=== PATIENT | female | born 1965 | race Caucasian/White ===

== ENCOUNTER 2018-07-15 13:51 | Inpatient (IN) | payer MEDICAID, OTHER ==
[~2018-07-15] VITALS: Ht 167.6 cm; Wt 149.4 kg
[~2018-07-15 13:51] MED LIST: FURO20TA3 PO; NIFE20CA PO; POTA20TA89 PO; SULF-169 PO
--- NOTE | 2018-07-15 14:38 | NUR ---
FIRST CONTACT WITH PT: ED MD at bedside. Per pt, "Starting last night I could feel my blood pressure was super high. I could feel my heart beat all the way to my toes. For a few months I have had this swelling on my right lower leg." Pt conneted to personnel monitor, SPO2% monitor, and NIBP. NADN. Spouse at bedside. Pt denies n/v/d, sob, cp, or trauma. Pt denies trauma to lower extremity. Per pt, "I have been having pain in my left shoulder." All safety measures in place. Call light within reach.
[2018-07-15 14:45] LABS: BASOPHILS # (AUTO) 0.05 x10^3/uL (0-0.1); BASOPHILS % (AUTO) 1 % (0-1); EOSINOPHILS # (AUTO) 0.12 x10^3/uL (0-0.4); EOSINOPHILS % (AUTO) 1 % (1-7); LYMPHOCYTES # (AUTO) 2.08 x10^3/uL (1-3.4); LYMPHOCYTES % (AUTO) 21 % (22-44); MD NO; MEAN CORPUSCULAR HEMOGLOBIN 33.1 pg (27.0-34.8); MEAN CORPUSCULAR HGB CONC 34.3 g/dL (32.4-35.8); MEAN CORPUSCULAR VOLUME 96.6 fL (80-100); MEAN PLATELET VOLUME 8.3 fL (7.4-10.4); MONOCYTES # (AUTO) 0.31 x10^3/uL (0.2-0.8); MONOCYTES % (AUTO) 3 % (2-9); NEUTROPHILS # (AUTO) 7.46 x10^3/uL (1.8-6.8); NEUTROPHILS % (AUTO) 75 % (42-75); PLATELET COUNT 285 x10^3/uL (130-400); RED BLOOD COUNT 5.06 x10^6/uL (3.82-5.3); RED CELL DISTRIBUTION WIDTH 13.3 % (9.6-15.2)
[2018-07-15 14:54] LABS: ALBUMIN 3.8 g/dL (3.4-5.0); ANION GAP 6 mmol/L (5-15); CALCIUM 8.9 mg/dL (8.5-10.1); CHLORIDE 106 mmol/L (98-107)
[2018-07-15] MEDS ORDERED: ASPIRIN 325 MG TABLET ONE (14:57)
[2018-07-15 14:59] LABS: CREATININE 0.87 mg/dL (0.55-1.02); TROPONIN I < 0.015 ng/mL (0.000-0.045)
[2018-07-15] MEDS ORDERED: ASPIRIN 325 MG TABLET PO ONE (15:00)
[2018-07-15] MEDS ORDERED: SPIR25TA5 PO (15:03)
[2018-07-15 15:23] LABS: FREE T4 (FREE THYROXINE) 1.06 ng/dL (0.76-1.46); THYROID STIMULATING HORMONE 0.811 mIU/L (0.358-3.740)
--- NOTE | 2018-07-15 16:50 | NUR ---
Provided report to STEPHANY Puri. All questions answered. Pt ready to transfer to floor from ED.
[2018-07-15] MEDS ORDERED: LABETALOL 5MG/ML, 20ML IVPush PRN (17:00)
[2018-07-15] MEDS ORDERED: ONDANSETRON ODT 4 MG PO PRN (17:00)
[2018-07-15] MEDS ORDERED: ONDANSETRON 2MG/ML, 2ML IVPush PRN (17:00)
[2018-07-15] MEDS ORDERED: ACETAMINOPHEN 325 MG TABLET PO PRN (17:00)
[2018-07-15 17:23] VITALS: BP 134/79
[2018-07-15] MEDS: ENOXAPARIN 40 MG/0.4 ML SQ SCH (18:09)
[2018-07-15 19:48] LABS: TROPONIN I < 0.015 ng/mL (0.000-0.045)
[2018-07-15 20:09] VITALS: BP 150/95
[2018-07-16 01:46] LABS: BASOPHILS # (AUTO) 0.11 x10^3/uL (0-0.1); BASOPHILS % (AUTO) 1 % (0-1); EOSINOPHILS # (AUTO) 0.11 x10^3/uL (0-0.4); EOSINOPHILS % (AUTO) 1 % (1-7); LYMPHOCYTES # (AUTO) 3.27 x10^3/uL (1-3.4); LYMPHOCYTES % (AUTO) 31 % (22-44); MD NO; MEAN CORPUSCULAR HEMOGLOBIN 33.1 pg (27.0-34.8); MEAN CORPUSCULAR HGB CONC 34.3 g/dL (32.4-35.8); MEAN CORPUSCULAR VOLUME 96.5 fL (80-100); MONOCYTES # (AUTO) 0.53 x10^3/uL (0.2-0.8); MONOCYTES % (AUTO) 5 % (2-9); NEUTROPHILS # (AUTO) 6.66 x10^3/uL (1.8-6.8); NEUTROPHILS % (AUTO) 62 % (42-75); PLATELET COUNT 274 x10^3/uL (130-400); RED BLOOD COUNT 4.79 x10^6/uL (3.82-5.3); RED CELL DISTRIBUTION WIDTH 13.5 % (9.6-15.2)
[2018-07-16 01:55] VITALS: BP 129/77
[2018-07-16 03:18] LABS: ANION GAP 6 mmol/L (5-15); CALCIUM 8.7 mg/dL (8.5-10.1); CHLORIDE 107 mmol/L (98-107); CREATININE 0.75 mg/dL (0.55-1.02); TROPONIN I < 0.015 ng/mL (0.000-0.045)
[2018-07-16 04:06] LABS: CHOLESTEROL, TOTAL 177 mg/dL (140-239); TRIGLYCERIDES 269 mg/dL (50-200); VLDL CHOLESTEROL 54 mg/dL (0-25)
[2018-07-16 04:08] LABS: CHOL/HDL RATIO 4.3; HDL CHOL % 23 % (28-40); HDL CHOLESTEROL (DIRECT) 41 mg/dL (40-60); LDL CHOLESTEROL,CALCULATED 82 mg/dL (54-169)
[2018-07-16 06:47] VITALS: BP 130/77
[2018-07-16] MEDS ORDERED: REGADENOSON 0.4 MG/5 ML SYRINGE ONE (08:29)
[2018-07-16] MEDS: niFEDipine ER 60 MG TABLET.ER PO SCH (12:18)
[2018-07-16] MEDS: SPIRONOLACTONE 25 MG TABLET PO SCH (12:18)
[2018-07-16 12:41] VITALS: BP 135/84
[2018-07-16] MEDS: ENOXAPARIN 40 MG/0.4 ML SQ SCH (18:08)
[2018-07-16 19:59] VITALS: BP 131/76
[2018-07-17 01:10] VITALS: BP 115/72
[2018-07-17 07:19] VITALS: BP 122/78
[2018-07-17 10:45] VITALS: BP 118/70
[2018-07-17] MEDS: SPIRONOLACTONE 25 MG TABLET PO SCH (10:45)
[2018-07-17] MEDS: niFEDipine ER 60 MG TABLET.ER PO SCH (10:45)
[2018-07-17 12:23] VITALS: BP_SYST 119; BP_SYST 138; BP_DIAS 68
== END 2018-07-17 15:36 | disposition home or self-care (01) | DRG 313 ==
LOC: ED 16:16 → EDIP 16:36 → 5SO 17:10 → DCLOUNGE 07-17 15:23
PROVIDERS: ADMIT Internal Medicine; ATTEND Internal Medicine
DX: R07.89 Other chest pain (principal); G47.33 Obstructive sleep apnea (adult) (pediatric); I10 Essential (primary) hypertension; F17.200 Nicotine dependence, unspecified, uncomplicated; E74.39 Other disorders of intestinal carbohydrate absorption; Z71.6 Tobacco abuse counseling
CPT/HCPCS: 36415; 71045; 78452; 80048; 80061; 82040; 83036; 83880; 84439; 84443; 84484; 85025; 85379; 93005; 93017; 93306; 99285; G0378; J1650; J2785; A9502; C9898